=== PATIENT | male | born 1970 | race Caucasian/White ===

== ENCOUNTER 2016-09-26 23:32 | Emergency (ER) | payer SELFPAY ==
--- NOTE | 2016-09-27 02:00 | ED ORDER SUMMARY ---
..... Patient: SRINIVASA ERNANDEZ OrderSheet [facility] VisitID: [id number] [place] [address] 46y, M Registration Date/Time: 09/26/2016 ORDER SHEET Weight: 90.7 kg (stated) Allergies: No Known Drug Allergy GENERAL ORDERS: US Scrotum/Testicular Urgent (23:54 09/26/2016 Brianne MAY) (Ack 23:57 AMcQuoid ER Tech1) (1:19 [place]) MEDICATION ORDERS: IV FLUIDS: Dilaudid IV 1 mg (HIGH ALERT MEDICATION, NOW) (23:54 09/26/2016 Brianne MAY) (Ack 0:09 CBradburn R.N.) (0:30 CBradburn R.N.) Toradol IV 30 mg (NOW) (23:54 09/26/2016 Brianne MAY) (Ack 0:09 CBradburn R.N.) (0:30 CBradburn R.N.) ORDER SHEET NOTES: [Electronically signed by Shelia Sahu R.N. (10:09/27/2016)] [Electronically signed by Asia Castillo MD (10:28 10/05/2016)] [Electronically locked/signed by Shelia Sahu R.N. (10:09/27/2016)]
--- NOTE | 2016-09-27 02:00 | ED CLINICAL REPORT ---
Clinical Report - Physicians/Mid Levels [facility] [address] [place] [address] 09/26/2016 23:33 Patient: SRINIVASA WOLFF Time Seen: 23:43. Arrived- By private vehicle. Historian- patient. HISTORY OF PRESENT ILLNESS Chief Complaint: (left scrotal swelling and pain). This started about 2 weeks ago but got worse yesterday and is still present. The problem is described as moderate. No penile discharge, discomfort with urination, urinary frequency, genital lesion or testicular pain. No urgency of urination, flank pain, Garcia catheter problem, inguinal swelling or problem with the foreskin. Able to void. Not voiding only small amounts. Sexual history is noncontributory. (patient states that after doing some lifting yesterday he noticed that the pain suddenly got worse and stated swelling.). Similar symptoms previously: ( Patient has a prior history of hernia repair.). Recent medical care: Not recently seen/assessed. REVIEW OF SYSTEMS No fever, chills, flank pain, hematuria or abdominal pain. No vomiting, diarrhea, black stools, bloody stools or headache. No sore throat, blurred vision, chest pain, difficulty breathing or cough. No joint pain, skin rash or back pain. All systems otherwise negative, except as recorded above. PAST HISTORY Problems: Corneal Foreign Body. Chronic Back Pain. Additional Surgeries: Eye surgery. Hernia Repair. Medications: None. Allergies: No Known Drug Allergy. SOCIAL HISTORY Smoker- current status unknown. No alcohol use or drug use. ADDITIONAL NOTES The nursing notes have been reviewed. PHYSICAL EXAM Vital Signs: 09/26/2016 23:38 BP: 135/89. HR: 110. RR: 18. O2 saturation: 100%. Temp: 99.2 F. Pain level now: 1010. Have been reviewed. Appearance: Alert. Oriented X3. No acute distress. (Patient appears moderately uncomfortable.). ENT: Normal external inspection. Neck: Neck supple. CVS: Heart sounds normal. Respiratory: No respiratory distress. Breath sounds normal. Abdomen: Soft and nontender. : Moderate left-sided scrotal swelling with tenderness. No induration, erythema or fluctuance. Skin: Skin warm and dry. Normal skin color. No rash. Normal skin turgor. Extremities: Extremities exhibit normal ROM. No lower extremity edema. Neuro: No motor deficit. No sensory deficit. (Grossly oriented.). LABS, X-RAYS, AND EKG Scrotal Sonogram: No abnormality noted. Arterial flow normal bilaterally. Venous flow normal bilaterally. Testes normal. Epididymides normal. L inguinal hernia. Study type: utilized duplex sonography. The exam was performed by a driver license technician. The study was limited due to pain. The study was independently viewed by me, interpreted by the radiologist and contemporaneously by me and discussed with the radiologist. Prior studies were not available for comparison. Pulse Oximetry: 09/26/2016 23:38 O2 saturation: 100%. (FIO2 - room air). Interpretation: normal. PROGRESS AND PROCEDURES Course of Care: Patient was worked up with an ultrasound of the scrotum, which not surprisingly, showed a left inguinal hernia. Patient was also treated symptomatically with Toradol and Dilaudid. I did discuss with the patient that he will need to follow-up and have this surgically repaired given the extent of the hernia. There is no incarceration this time and no testicular torsion. The patient was deemed stable for discharge home. Patient counseled in person regarding the patient's stable condition, test results and diagnosis. Old medical records ordered. Disposition: Discharged. Condition: stable. CLINICAL IMPRESSION Reducible and recurrent left inguinal hernia. No incarcerated hernia, obstruction or gangrene. INSTRUCTIONS Return to work tomorrow (Mr. Wolff was given an IV pain medication, Dilaudid, while in the emergency department.). Drink plenty of fluids. (Your ultrasound shows a herniation of bowel into your scrotum; however, your testicle looks fine. You can wear a support device/supportive briefs, and avoid heavy lifting, but the most effective way to deal with this is to get the hernia repaired. You may return during regular business hours to speak with Ms. Landon Velasquez for assistance with getting signed up for insurance.). Warnings: SEDATIVE MEDICATION: You were given sedative medication during your visit. Do not drive or operate dangerous machinery for 6 hours. GENERAL WARNINGS: Return or contact your physician immediately if your condition worsens or changes unexpectedly, if not improving as expected, or if other problems arise. Prescription Medications: Hydrocodone/APAP 5mg / 325mg: take 1-2 orally every 6 hours as needed for pain. Dispense twenty (20). No refill. Understanding of the discharge instructions verbalized by patient. Follow-up with: King Lagunas MD, General Surgeon, , [place] [id number]; Duane Meredith MD, General Surgeon, , [facility], [address] [place] [address] Follow up. Call for the next available appointment. Reason for referral: Need hernia repair. (Electronically signed by Asia Castillo MD 10/05/2016 10:28)
--- NOTE | 2016-09-27 02:00 | ED ORDER SUMMARY ---
..... Patient: SRINIVASA ERNANDEZ OrderSheet [facility] VisitID: [id number] [place] [address] 46y, M Registration Date/Time: 09/26/2016 ORDER SHEET Weight: 90.7 kg (stated) Allergies: No Known Drug Allergy GENERAL ORDERS: US Scrotum/Testicular Urgent (23:54 09/26/2016 Brianne MAY) (Ack 23:57 AMcQuoid ER Tech1) (1:19 [place]) MEDICATION ORDERS: IV FLUIDS: Dilaudid IV 1 mg (HIGH ALERT MEDICATION, NOW) (23:54 09/26/2016 Brianne MAY) (Ack 0:09 CBradburn R.N.) (0:30 CBradburn R.N.) Toradol IV 30 mg (NOW) (23:54 09/26/2016 Brianne MAY) (Ack 0:09 CBradburn R.N.) (0:30 CBradburn R.N.) ORDER SHEET NOTES: [Electronically signed by Shelia Sahu R.N. (10:09/27/2016)] [Electronically signed by Asia Castillo MD (10:28 10/05/2016)] [Electronically locked/signed by Shelia Sahu R.N. (10:09/27/2016)]
--- NOTE | 2016-09-27 02:00 | ED CLINICAL REPORT ---
Clinical Report - Physicians/Mid Levels [facility] [address] [place] [address] 09/26/2016 23:33 Patient: SRINIVASA WOLFF Time Seen: 23:43. Arrived- By private vehicle. Historian- patient. HISTORY OF PRESENT ILLNESS Chief Complaint: (left scrotal swelling and pain). This started about 2 weeks ago but got worse yesterday and is still present. The problem is described as moderate. No penile discharge, discomfort with urination, urinary frequency, genital lesion or testicular pain. No urgency of urination, flank pain, Garcia catheter problem, inguinal swelling or problem with the foreskin. Able to void. Not voiding only small amounts. Sexual history is noncontributory. (patient states that after doing some lifting yesterday he noticed that the pain suddenly got worse and stated swelling.). Similar symptoms previously: ( Patient has a prior history of hernia repair.). Recent medical care: Not recently seen/assessed. REVIEW OF SYSTEMS No fever, chills, flank pain, hematuria or abdominal pain. No vomiting, diarrhea, black stools, bloody stools or headache. No sore throat, blurred vision, chest pain, difficulty breathing or cough. No joint pain, skin rash or back pain. All systems otherwise negative, except as recorded above. PAST HISTORY Problems: Corneal Foreign Body. Chronic Back Pain. Additional Surgeries: Eye surgery. Hernia Repair. Medications: None. Allergies: No Known Drug Allergy. SOCIAL HISTORY Smoker- current status unknown. No alcohol use or drug use. ADDITIONAL NOTES The nursing notes have been reviewed. PHYSICAL EXAM Vital Signs: 09/26/2016 23:38 BP: 135/89. HR: 110. RR: 18. O2 saturation: 100%. Temp: 99.2 F. Pain level now: 1010. Have been reviewed. Appearance: Alert. Oriented X3. No acute distress. (Patient appears moderately uncomfortable.). ENT: Normal external inspection. Neck: Neck supple. CVS: Heart sounds normal. Respiratory: No respiratory distress. Breath sounds normal. Abdomen: Soft and nontender. : Moderate left-sided scrotal swelling with tenderness. No induration, erythema or fluctuance. Skin: Skin warm and dry. Normal skin color. No rash. Normal skin turgor. Extremities: Extremities exhibit normal ROM. No lower extremity edema. Neuro: No motor deficit. No sensory deficit. (Grossly oriented.). LABS, X-RAYS, AND EKG Scrotal Sonogram: No abnormality noted. Arterial flow normal bilaterally. Venous flow normal bilaterally. Testes normal. Epididymides normal. L inguinal hernia. Study type: utilized duplex sonography. The exam was performed by a instrument room technician. The study was limited due to pain. The study was independently viewed by me, interpreted by the radiologist and contemporaneously by me and discussed with the radiologist. Prior studies were not available for comparison. Pulse Oximetry: 09/26/2016 23:38 O2 saturation: 100%. (FIO2 - room air). Interpretation: normal. PROGRESS AND PROCEDURES Course of Care: Patient was worked up with an ultrasound of the scrotum, which not surprisingly, showed a left inguinal hernia. Patient was also treated symptomatically with Toradol and Dilaudid. I did discuss with the patient that he will need to follow-up and have this surgically repaired given the extent of the hernia. There is no incarceration this time and no testicular torsion. The patient was deemed stable for discharge home. Patient counseled in person regarding the patient's stable condition, test results and diagnosis. Old medical records ordered. Disposition: Discharged. Condition: stable. CLINICAL IMPRESSION Reducible and recurrent left inguinal hernia. No incarcerated hernia, obstruction or gangrene. INSTRUCTIONS Return to work tomorrow (Mr. Wolff was given an IV pain medication, Dilaudid, while in the emergency department.). Drink plenty of fluids. (Your ultrasound shows a herniation of bowel into your scrotum; however, your testicle looks fine. You can wear a support device/supportive briefs, and avoid heavy lifting, but the most effective way to deal with this is to get the hernia repaired. You may return during regular business hours to speak with Ms. Landon Velasquez for assistance with getting signed up for insurance.). Warnings: SEDATIVE MEDICATION: You were given sedative medication during your visit. Do not drive or operate dangerous machinery for 6 hours. GENERAL WARNINGS: Return or contact your physician immediately if your condition worsens or changes unexpectedly, if not improving as expected, or if other problems arise. Prescription Medications: Hydrocodone/APAP 5mg / 325mg: take 1-2 orally every 6 hours as needed for pain. Dispense twenty (20). No refill. Understanding of the discharge instructions verbalized by patient. Follow-up with: King Lagunas MD, General Surgeon, , [place] [id number]; Dunae Meredith MD, General Surgeon, , [facility], [address] [place] [address] Follow up. Call for the next available appointment. Reason for referral: Need hernia repair. (Electronically signed by Asia Castillo MD 10/05/2016 10:28)
--- NOTE | 2016-09-27 02:00 | ED NURSING NOTES ---
Clinical Report - Nurses [facility] [address] [place] [address] 09/26/2016 23:33 Patient: SRINIVASA ERNANDEZ TRIAGE Triage time 23:32. Acuity: LEVEL 3. Chief Complaint: TESTICULAR PAIN. --23:45 Verito Grewal R.N. 23:38 09/26/16. BP: 135/89 taken on the left arm, while lying. HR: 110 (regular and tachycardic). RR: 18 (regular and unlabored). O2 saturation: 100%. Temp: 99.2 F. Pain level now: 02/12. --23:45 Verito Grewal R.N. Weight: 90.7 kg stated. Height/Length: 67 inches Per Patient. BMI: 31.3. --23:39 Verito Grewal R.N. Medications None. --23:43 Verito Grewal R.N. Allergies No Known Drug Allergy. --23:44 Verito Grewal R.N. History Arrived by private vehicle. Historian: patient. Accompanied by friend. Primary physician (none). Onset was abrupt. Symptoms still present (2 days ago). ( coughed 2 days ago and felt a pop in his groin, left testicular swelling and redness with abd pain .. nausea.). ( not voided since noon). SOCIAL HX: Heavy tobacco smoker (cigarette)- less than 1 pack per day. No alcohol use or drug use. No infectious disease exposure. SELF HARM ASSESSMENT: A self harm assessment was performed. The patient answered "no" to the question "Have you recently felt down, depressed, or hopeless?", "Have you noticed less interest or pleasure in doing things?", "Do you have thoughts of harming or killing yourself?", "Are you here because you tried to hurt yourself?", "Have you ever tried to hurt yourself before today?", "Have you recently had thoughts about harming or killing others?" and "Do you have any dangerous items in your possession?". FALL RISK ASSESSMENT: Fall risk assessment completed. No fall risk identified. NUTRITIONAL RISK ASSESSMENT: The nutritional risk assessment revealed no deficiencies. FUNCTIONAL ASSESSMENT: Functional assessment: no impairments noted. LEARNING NEEDS ASSESSMENT: The learning needs assessment revealed no barriers. ABUSE ASSESSMENT: Abuse assessment: The patient was asked "Do you feel safe in your home?" Abuse denied by patient. SKIN INTEGRITY ASSESSMENT: Skin integrity risk assessment completed. No skin integrity risk identified. --23:45 Verito Grewal R.N. PAST MEDICAL HX: Immunizations: status is unknown. --23:45 Verito Grewal R.N. PROBLEMS: Chronic Back Pain. --23:44 Verito Grewal R.N. ADDITIONAL SURGERIES: Eye surgery. Hernia Repair. --23:44 Verito Grewal R.N. Interventions ID band on patient. --23:45 Verito Grewal R.N. PHYSICAL ASSESSMENT Ambulatory to room. GENERAL / NEURO / PSYCH: Alert. Oriented X 4. Appears in pain. HEENT: Mucous membranes are pink. RESPIRATORY: Respirations not labored. Breath sounds within normal limits. CVS: Normal heart rate and rhythm. Capillary refill less than 2 seconds. GI / : Abdomen soft. Abdominal tenderness in the left lower quadrant. Bowel sounds within normal limits. Left testicular tenderness with swelling and erythema. SKIN: Skin is warm and dry. --23:46 Verito Grewal R.N. NURSING PROGRESS NOTES Patient gowned. Reassurance given to the patient. Two patient identifiers checked. Call light placed in reach. Side rails up x 2. Bed placed in lowest position. Brakes of bed on. --23:46 Verito Grewal R.N. Patient ready for evaluation- chart flagged. --23:46 Verito Grewal R.N. 23:47 09/26/2016 Site #1 started via IV in the right antecubital space with an 20g angiocath, with aseptic technique and good blood return; one attempt. Blood drawn: rainbow set. Labeled in the presence of the patient and sent to the lab. Saline lock flushed with 10 mL saline. --23:47 Verito Grewal R.N. 00:13 09/27/2016 Toradol IVP 30 mg given over 2 minute(s) via site #1. Allergies verified and confirmed 5 rights. IV patency established. IV site checked: no pain, redness, or swelling. IV flushed thoroughly pre- and post-medication administration. IVP given by RN. --00:30 Verito Grewal R.N. 00:15 09/27/2016 Dilaudid (HYDROmorphone HCl PF) IVP 1 mg given over 2 minute(s) via site #1. Allergies verified, confirmed 5 rights and sedative warning given to the patient. IV patency established. IV site checked: no pain, redness, or swelling. IV flushed thoroughly pre- and post-medication administration. IVP given by RN. --00:30 Verito Grewal R.N. DISPOSITION / DISCHARGE 02:04 09/27/16. BP: 114/69. HR: 92. RR: 18. O2 saturation: 94%. Temp: 98.1 F. Pain level now: 07/13. --02:05 Amarilys Jeong R.N. 02:03 09/27/2016 Site #1 removed upon discharge. Manual pressure and bandaid applied. --02:08 Amarilys Jeong R.N. 02:12 09/27/16. No learning barriers present. Discharge instructions provided and reviewed with the patient. Reviewed warnings. Reviewed medication(s). Treatments reviewed. Reviewed referrals. Patient verbalized understanding. Written instructions provided in Hungarian. The patient was discharged home. He left the Emergency Department ambulatory and via private vehicle. --02:12 Amarilys Jeong R.N. Locked/Released at 09/27/2016 10:01 by Shelia Sahu R.N.
--- NOTE | 2016-09-27 07:44 | DIAGNOSTIC IMAGING REPORT ---
PROCEDURE: US SCROTUM/TESTICLE INDICATION: SCROTAL SWELLING TECHNIQUE: Vieira scale and color Doppler sonographic images through the scrotum were obtained. COMPARISON: None. FINDINGS: The right testicle measures 5.3 x 3.8 x 3.2 cm and the left measures 4.5 x 4.0 x 2.7 cm Both testicles demonstrate homogeneous echotexture without solid mass, cyst, or numerous microcalcifications. Color Doppler imaging demonstrates normal and symmetric arterial and venous testicular flow. No suspicious hyperemia. There is a 2.7 x 1.9 x 1.8 cm simple cyst associated with the right epididymal head. Left epididymis is not well seen. No hydrocele or varicocele. In the superior left scrotum, there is bowel and fat without hernia caudally displacing the left testicle. No adjacent fluid collection. The patient states the hernia is reducible per the technologist. IMPRESSION: 1. Normal testicles. 2. Bowel and fat containing left inguinal hernia caudally displacing left testicle. 3. Right epididymal head cyst measuring 2.7 cm.
--- NOTE | 2016-10-05 10:28 | ED DISCHARGE INSTRUCTIONS ---
Patient: SRINIVASA WOLFF General Instructions [facility] VisitID: [id number] [place] [address] 46y, M Registration Date/Time: 09/26/2016 Reducible and recurrent left inguinal hernia. No incarcerated hernia, obstruction or gangrene. INSTRUCTIONS Return to work tomorrow (Mr. Wolff was given an IV pain medication, Dilaudid, while in the emergency department.). Drink plenty of fluids. (Your ultrasound shows a herniation of bowel into your scrotum; however, your testicle looks fine. You can wear a support device/supportive briefs, and avoid heavy lifting, but the most effective way to deal with this is to get the hernia repaired. You may return during regular business hours to speak with Ms. Landon Velasquez for assistance with getting signed up for insurance.). Warnings: SEDATIVE MEDICATION: You were given sedative medication during your visit. Do not drive or operate dangerous machinery for 6 hours. GENERAL WARNINGS: Return or contact your physician immediately if your condition worsens or changes unexpectedly, if not improving as expected, or if other problems arise. Prescription Medications: Hydrocodone/APAP 5mg / 325mg: take 1-2 orally every 6 hours as needed for pain. Dispense twenty (20). No refill. Understanding of the discharge instructions verbalized by patient. Follow-up with: King Lagunas MD, General Surgeon, , [place] [id number]; Duane Meredith MD, General Surgeon, , [place] [address] Follow up. Call for the next available appointment. Reason for referral: Need hernia repair. ADDITIONAL INFORMATION Hernia [Adult] A hernia is a bulge of the intestines or surrounding tissues through a tear in the muscle of the abdomen or groin. This may occur as a result of excessive coughing, heavy lifting or being overweight. It can also occur at the site of prior surgery. When a hernia first appears it may be painful due to stretching and tearing of the muscle fibers. When you lie down, the bulge should reduce in size or disappear completely. If it does not, and you are unable to flatten it with your hand, medical attention is needed at once. Home Care: Avoid heavy lifting and straining or any activities that cause pain in the hernia. Follow Up with your physician as directed by our staff. Get Prompt Medical Attention if any of the following occur: Increasing size of the hernia Increasing pain in the hernia A hernia that does not get smaller when you lie down Hardening of the hernia Abdominal swelling, fever or repeated vomiting Pain moves to the lower right abdomen (just below the waistline) or spreads to the back You have been given the following additional information: Hernia (Inguinal, Ventral, Umbilical) Return to work tomorrow (Mr. Wolff was given an IV pain medication, Dilaudid, while in the emergency department.). (Electronically signed by Asia Castillo MD 10/05/2016 10:28)
--- NOTE | 2016-10-05 10:28 | ED DISCHARGE INSTRUCTIONS ---
Patient: SRINIVASA WOLFF General Instructions [facility] VisitID: [id number] [place] [address] 46y, M Registration Date/Time: 09/26/2016 Reducible and recurrent left inguinal hernia. No incarcerated hernia, obstruction or gangrene. INSTRUCTIONS Return to work tomorrow (Mr. Wolff was given an IV pain medication, Dilaudid, while in the emergency department.). Drink plenty of fluids. (Your ultrasound shows a herniation of bowel into your scrotum; however, your testicle looks fine. You can wear a support device/supportive briefs, and avoid heavy lifting, but the most effective way to deal with this is to get the hernia repaired. You may return during regular business hours to speak with Ms. Landon Velasquez for assistance with getting signed up for insurance.). Warnings: SEDATIVE MEDICATION: You were given sedative medication during your visit. Do not drive or operate dangerous machinery for 6 hours. GENERAL WARNINGS: Return or contact your physician immediately if your condition worsens or changes unexpectedly, if not improving as expected, or if other problems arise. Prescription Medications: Hydrocodone/APAP 5mg / 325mg: take 1-2 orally every 6 hours as needed for pain. Dispense twenty (20). No refill. Understanding of the discharge instructions verbalized by patient. Follow-up with: King Lagunas MD, General Surgeon, , [place] [address]; Duane Meredith MD, General Surgeon, , [place] [address] Follow up. Call for the next available appointment. Reason for referral: Need hernia repair. ADDITIONAL INFORMATION Hernia [Adult] A hernia is a bulge of the intestines or surrounding tissues through a tear in the muscle of the abdomen or groin. This may occur as a result of excessive coughing, heavy lifting or being overweight. It can also occur at the site of prior surgery. When a hernia first appears it may be painful due to stretching and tearing of the muscle fibers. When you lie down, the bulge should reduce in size or disappear completely. If it does not, and you are unable to flatten it with your hand, medical attention is needed at once. Home Care: Avoid heavy lifting and straining or any activities that cause pain in the hernia. Follow Up with your physician as directed by our staff. Get Prompt Medical Attention if any of the following occur: Increasing size of the hernia Increasing pain in the hernia A hernia that does not get smaller when you lie down Hardening of the hernia Abdominal swelling, fever or repeated vomiting Pain moves to the lower right abdomen (just below the waistline) or spreads to the back You have been given the following additional information: Hernia (Inguinal, Ventral, Umbilical) Return to work tomorrow (Mr. Wolff was given an IV pain medication, Dilaudid, while in the emergency department.). (Electronically signed by Asia Castillo MD 10/05/2016 10:28)
--- NOTE | 2016-10-05 10:28 | ED MAR SUMMARY ---
..... Medication Administration Record [facility] [address] [place] [address] Patient: SRINIVASA ERNANDEZ Visit ID: [id number] 46y, M Weight: 90.7 kg Height/Length: 67 in BMI: 31.3 ALLERGIES: No Known Drug Allergy Given 00:13 09/27/2016 Verito Grewal RKrystle Medication Administered: TORADOL [IVP], Dose: 30 mg IVP over 2 minute(s), Site: #1 right AC. Medication Ordered: Toradol IV 30 mg (NOW). Given 00:15 09/27/2016 Verito Grewal RElviraN. Medication Administered: DILAUDID [IVP] (HYDROMORPHONE HCL PF), Dose: 1 mg IVP over 2 minute(s), Site: #1 right AC. Medication Ordered: Dilaudid IV 1 mg (HIGH ALERT MEDICATION, NOW).
--- NOTE | 2016-10-05 10:28 | ED MED RECONCILIATION SUMMARY ---
Patient: SRINIVASA ERNANDEZ Medication Reconciliation Report [facility] VisitID: [id number] [address] [place] [address] 46y, M Registration Date/Time: 09/26/2016 Weight: 90.7 kg Height/Length: 67 in. BMI: 31.3 ALLERGIES: No Known Drug Allergy The patient's Home Medications are listed below: NONE. The source(s) of the original Home Medication information: Not obtained. The following Medications were given to the patient in the Emergency Department: Dilaudid [IVP] IVP 1 mg, administered: 09/27/2016 12:15:00 AM Toradol [IVP] IVP 30 mg, administered: 09/27/2016 12:13:00 AM The following Medications were prescribed to the patient: Hydrocodone/APAP 5mg / 325mg: take 1-2 orally every 6 hours as needed for pain. Dispense twenty (20). No refill. -- Asia Castillo MD
--- NOTE | 2016-10-05 10:28 | ED MED RECONCILIATION SUMMARY ---
Patient: SRINIVASA ERNANDEZ Medication Reconciliation Report [facility] VisitID: [id number] [address] [place] [address] 46y, M Registration Date/Time: 09/26/2016 Weight: 90.7 kg Height/Length: 67 in. BMI: 31.3 ALLERGIES: No Known Drug Allergy The patient's Home Medications are listed below: NONE. The source(s) of the original Home Medication information: Not obtained. The following Medications were given to the patient in the Emergency Department: Dilaudid [IVP] IVP 1 mg, administered: 09/27/2016 12:15:00 AM Toradol [IVP] IVP 30 mg, administered: 09/27/2016 12:13:00 AM The following Medications were prescribed to the patient: Hydrocodone/APAP 5mg / 325mg: take 1-2 orally every 6 hours as needed for pain. Dispense twenty (20). No refill. -- Asia Castillo MD
--- NOTE | 2016-10-05 10:28 | ED MAR SUMMARY ---
..... Medication Administration Record [facility] [address] [place] [address] Patient: SRINIVASA ERNANDEZ Visit ID: [id number] 46y, M Weight: 90.7 kg Height/Length: 67 in BMI: 31.3 ALLERGIES: No Known Drug Allergy Given 00:13 09/27/2016 Verito Grewal RKrystle Medication Administered: TORADOL [IVP], Dose: 30 mg IVP over 2 minute(s), Site: #1 right AC. Medication Ordered: Toradol IV 30 mg (NOW). Given 00:15 09/27/2016 Verito Grewal RElviraN. Medication Administered: DILAUDID [IVP] (HYDROMORPHONE HCL PF), Dose: 1 mg IVP over 2 minute(s), Site: #1 right AC. Medication Ordered: Dilaudid IV 1 mg (HIGH ALERT MEDICATION, NOW).
== END 2016-09-27 02:13 | disposition home or self-care (01) ==
LOC: ED SRH 23:32
DX: K40.31 Unilateral inguinal hernia, with obstruction, without gangrene, recurrent (principal)